=== PATIENT | male | born 1970 | race Caucasian/White ===

== ENCOUNTER 2016-08-24 13:30 | Outpatient (RCR) | payer OTHER | END 2016-10-25 | disposition home or self-care (01) | LOC: WSPT → EDBD 13:30 | DX: M25.562 Pain in left knee (principal); M25.561 Pain in right knee | CPT/HCPCS: G8978-GP; G8979-GP; G8980-GP ==

== ENCOUNTER 2016-10-26 11:13 | Outpatient (RCR) | payer OTHER | END 2016-10-26 11:36 | disposition home or self-care (01) | LOC: WSPT 11:13 → EDBD 11:13 → WSPT 11:36 | DX: M25.561 Pain in right knee (principal); M25.562 Pain in left knee ==